=== PATIENT | female | born 1945 | race Caucasian/White ===

== ENCOUNTER 2019-03-18 09:28 | Inpatient (IN) | payer OTHER, BC ==
[~2019-03-18] VITALS: Ht 160 cm; Wt 73.0 kg
[~2019-03-18 09:28] MED LIST: RIVAROXABAN 10 MG TABLET PO SCH
[2019-03-18] MEDS ORDERED: CEFAZOLIN 2 GM IVPB PREMIX 50 ML IV ONE (09:45)
[2019-03-18] MEDS ORDERED: TRANEXAMIC ACID 650 MG TABLET PO ONE (10:00)
[2019-03-18] MEDS ORDERED: GABAPENTIN 300 MG CAPSULE PO ONE (10:00)
[2019-03-18] MEDS ORDERED: CELECOXIB 200 MG CAPSULE PO ONE (10:00)
[2019-03-18] MEDS ORDERED: NACL 0.9% 1,000 ML IV SCH (10:00)
[2019-03-18] MEDS ORDERED: ACETAMINOPHEN 500 MG TABLET PO PRN (10:00)
[2019-03-18] MEDS ORDERED: CELECOXIB 200 MG CAPSULE ONE (10:18)
[2019-03-18] MEDS ORDERED: GABAPENTIN 300 MG CAPSULE ONE (10:19)
[2019-03-18] MEDS ORDERED: oxyCODONE HCL 10 MG TAB.ER.12H PO ONE (10:20)
[2019-03-18] MEDS ORDERED: ACETAMINOPHEN 500 MG TABLET ONE (10:21)
[2019-03-18] MEDS ORDERED: TRANEXAMIC ACID 650 MG TABLET ONE (10:29)
[2019-03-18] MEDS ORDERED: OMEP40CA33 PO (10:45)
[2019-03-18] MEDS ORDERED: POLYMYXIN 500,000/BACIT.10,000 UNITS in NS IRR 1 L IR ONE (11:12)
[2019-03-18] MEDS ORDERED: D5/0.45 NS 1,000 ML IV ONE (12:04)
[2019-03-18] MEDS ORDERED: CEFAZOLIN 1 GM IVPB PREMIX 50 ML IV SCH (12:15)
[2019-03-18] MEDS ORDERED: BISACODYL 10 MG/SUPPOSITORY RC PRN (12:15)
[2019-03-18] MEDS ORDERED: fentaNYL CITRATE/PF 100 MCG/2 ML AMP IVP PRN ×2 (12:30)
[2019-03-18] MEDS ORDERED: DIPHENHYDRAMINE INJ 50 MG/ML VIAL IVP PRN ×2 (12:30)
[2019-03-18] MEDS ORDERED: NALOXONE HCL 0.4 MG/ML AMP (NARCAN) IVP PRN ×2 (12:30)
[2019-03-18] MEDS ORDERED: KETOROLAC TROMETHAMINE 60 MG/2 ML VIAL IM PRN (12:30)
[2019-03-18] MEDS ORDERED: NALBUPHINE HCL 10 MG/ML AMP IVP PRN ×2 (12:30)
[2019-03-18] MEDS ORDERED: MORPHINE SULFATE 10MG/10ML PF AMP SP SCH (12:30)
[2019-03-18] MEDS ORDERED: ONDANSETRON HCL 4 MG/2 ML VIAL IVP PRN ×2 (12:30)
[2019-03-18] MEDS ORDERED: OXYCODONE/ACETAMINOPHEN *10*mg/325 mg TABLET PO PRN (12:30)
[2019-03-18 15:00] VITALS: BP_SYST 108
[2019-03-18 15:07] VITALS: BP_SYST 108
[2019-03-18] MEDS: ROPIVACAINE 0.2% 100 ML INJ SCH (15:36)
[2019-03-18] MEDS: NACL 0.9% 1,000 ML IV SCH (16:26)
[2019-03-18] MEDS: CEFAZOLIN 1 GM IVPB PREMIX 50 ML IV SCH (16:43)
[2019-03-18 18:00] VITALS: BP_SYST 95
[2019-03-18] MEDS: MORPHINE SULFATE 10 MG/ML VIAL IM PRN (20:46)
[2019-03-18 22:00] VITALS: BP_SYST 109
[2019-03-19] MEDS: NACL 0.9% 1,000 ML IV SCH ×3 (00:18→16:21)
[2019-03-19] MEDS: CEFAZOLIN 1 GM IVPB PREMIX 50 ML IV SCH (00:19)
[2019-03-19] MEDS: ROPIVACAINE 0.2% 100 ML INJ SCH ×3 (00:19→23:37)
[2019-03-19 01:39] VITALS: BP_SYST 102
[2019-03-19 08:19] VITALS: BP_SYST 118
[2019-03-19] MEDS: MORPHINE SULFATE 10 MG/ML VIAL IM PRN ×4 (08:24→22:17)
[2019-03-19] MEDS: RIVAROXABAN 10 MG TABLET PO SCH (08:25)
[2019-03-19 11:34] VITALS: BP_SYST 102
[2019-03-19] MEDS: ACETAMINOPHEN 325 MG TABLET PO PRN (14:44)
[2019-03-19 16:07] VITALS: BP_SYST 126
[2019-03-19] MEDS ORDERED: MORPHINE 4 MG/ML INJ. SYRINGE IVP ONE (19:45)
[2019-03-19 20:00] VITALS: BP_SYST 125
[2019-03-19] MEDS: LORazepam 1 MG TABLET PO PRN (22:18)
[2019-03-20] MEDS: NACL 0.9% 1,000 ML IV SCH ×2 (00:54→09:13)
[2019-03-20 02:20] VITALS: BP_SYST 121
[2019-03-20] MEDS: ACETAMINOPHEN 325 MG TABLET PO PRN ×4 (04:17→20:33)
[2019-03-20 04:30] VITALS: BP_SYST 123
[2019-03-20 08:00] VITALS: BP_SYST 164
[2019-03-20] MEDS: ROPIVACAINE 0.2% 100 ML INJ SCH ×2 (09:00→20:37)
[2019-03-20] MEDS ORDERED: BACITRACIN 1 GM OINT TP SCH (09:00)
[2019-03-20] MEDS: RIVAROXABAN 10 MG TABLET PO SCH (09:12)
[2019-03-20 10:48] LABS: BASOPHILS # (AUTO) 0.1 K/uL (0.0-0.2); BASOPHILS % (AUTO) 0.6 % (0.0-2.0); EOSINOPHILS # (AUTO) 0.1 K/uL (0.0-0.4); EOSINOPHILS % (AUTO) 0.7 % (0.0-4.0); HEMATOCRIT 28.9 % (36-48); HEMOGLOBIN 9.4 g/dL (12.0-16.0); LYMPHOCYTES # (AUTO) 1.4 K/uL (1.0-5.5); LYMPHOCYTES % (AUTO) 14.7 % (20.5-51.5); MEAN CORPUSCULAR HEMOGLOBIN 30 pg (27-31); MEAN CORPUSCULAR HGB CONC 32 % (32-36); MEAN CORPUSCULAR VOLUME 93 fL (79.0-98.0); MONOCYTES % (AUTO) 10.5 % (1.7-9.3); NEUTROPHILS # (AUTO) 7.1 K/uL (1.8-7.7); NEUTROPHILS % (AUTO) 73.5 % (40.0-70.0); PLATELET COUNT (AUTO) 141 K/uL (130-430); RED BLOOD CELL COUNT(AUTO) 3.13 MIL/uL (4.2-6.2); RED CELL DISTRIBUTION WIDTH 14.1 % (9.0-15.0); WHITE BLOOD COUNT (AUTO) 9.6 K/uL (4.8-10.8)
[2019-03-20 10:55] LABS: ANION GAP 15 (5-15); CALCIUM 8.7 mg/dL (8.4-11.0); CHLORIDE 108 mmol/L (98-107); CREATININE 0.99 mg/dL (0.55-1.30); GLUCOSE 147 mg/dL (70-99); POTASSIUM 3.7 mmol/L (3.5-5.1); SODIUM SERUM 142 mmol/L (136-145); UREA NITROGEN, BLOOD 23 mg/dL (8-21)
[2019-03-20 11:00] LABS: ALANINE AMINOTRANSFERASE 46 U/L (12-78); ALBUMIN 2.9 g/dL (3.4-4.8); ASPARTATE AMINOTRANSFERASE 47 U/L (10-37); TOTAL BILIRUBIN 0.8 mg/dL (0.0-1.0)
[2019-03-20 12:00] VITALS: BP_SYST 143
[2019-03-20 16:00] VITALS: BP_SYST 152
[2019-03-20] MEDS: HYDROcodone/ACETAMIN 7.5-325 MG TAB PO PRN ×2 (17:24→23:18)
[2019-03-20] MEDS: MUPIROCIN 2% TOPICAL OINTMENT 22 GM NS SCH (20:32)
[2019-03-20 20:40] VITALS: BP_SYST 167
[2019-03-20] MEDS: LORazepam 1 MG TABLET PO PRN (23:17)
[2019-03-21 00:08] VITALS: BP_SYST 150
[2019-03-21] MEDS: HYDROcodone/ACETAMIN 7.5-325 MG TAB PO PRN ×3 (03:38→13:33)
[2019-03-21] MEDS: ROPIVACAINE 0.2% 100 ML INJ SCH (05:56)
[2019-03-21] MEDS: MUPIROCIN 2% TOPICAL OINTMENT 22 GM NS SCH (08:33)
[2019-03-21] MEDS: RIVAROXABAN 10 MG TABLET PO SCH (08:35)
[2019-03-21 09:09] VITALS: BP_SYST 158
[2019-03-21 10:30] VITALS: BP_SYST 158
[2019-03-21 11:29] VITALS: BP_SYST 130
[2019-03-21] MEDS ORDERED: RIVA10TA PO (13:08)
== END 2019-03-21 15:01 | DRG 470 ==
LOC: SMU 09:28
PROVIDERS: ADMIT Orthopaedic Surgery; ATTEND Orthopaedic Surgery
PROC: 0SRD0J9 Replacement of Left Knee Joint with Synthetic Substitute, Cemented, Open Approach (ICD-10-PCS; principal; 2019-03-18 12:00)
DX: M17.12 Unilateral primary osteoarthritis, left knee (principal); I48.91 Unspecified atrial fibrillation; I10 Essential (primary) hypertension; I25.10 Atherosclerotic heart disease of native coronary artery without angina pectoris; Z88.6 Allergy status to analgesic agent; Z96.651 Presence of right artificial knee joint; Z98.61 Coronary angioplasty status; Z95.0 Presence of cardiac pacemaker; Z87.891 Personal history of nicotine dependence
CPT/HCPCS: 36415; 80053; 85025; 87081; 88305; 88311; 97039; 97110-GP; 97116-GP; 97530-GP; C1713; C1776; J0690; J2270; J2795; J7030